=== PATIENT | female | born 1950 | race Caucasian/White ===

== ENCOUNTER → 2018-07-13 | Outpatient (CLI) | payer OTHER | LOC: BMCIMAGING 11:59 | PROVIDERS: ATTEND Internal Medicine | DX: Z12.31 Encounter for screening mammogram for malignant neoplasm of breast (principal) ==

== ENCOUNTER → 2018-07-20 | Outpatient (CLI) | payer OTHER | LOC: BMCIMAGING 11:09 | PROVIDERS: ATTEND Internal Medicine | DX: R92.8 Other abnormal and inconclusive findings on diagnostic imaging of breast (principal) ==

== ENCOUNTER 2019-02-21 06:21 | Day surgery (SDC) | payer OTHER ==
[2019-02-21] MEDS ORDERED: LIDOCAINE 1% 300 MG/30 ML SDV SC ONE (06:30)
--- NOTE | 2019-02-21 07:32 | PDHPUP ---
History & Physical Update H&P update statement: This history and physical update is based on an assessment of the patient which was completed after admission or registration (within 24 hours), but prior to the surgery/procedure. Pt presents for implantable loop in the setting of symptoms suggestive of SVT vs afib. Zio was unremarkable. H&P update: H&P reviewed & patient examined, no change in patient's condition since H&P completed
--- NOTE | 2019-02-21 10:14 | CPR ---
[f rep st] NONINVASIVE CARDIAC PROCEDURE REPORT DATE OF PROCEDURE: 02/21/2019 PROCEDURE PERFORMED: [employer] implantable loop recorder. INDICATION FOR PROCEDURE: The patient is a pleasant 68-year-old female with intermittent episodes of sustained irregular rapid heartbeat suggestive of atrial fibrillation. ZIO patch monitor worn for 2 weeks earlier this year did not demonstrate any evidence of atrial fibrillation. In the setting of concern for underlying atrial fibrillation in infrequent episodes, decision was made to implant a loo p recorder. Risks and benefits of the procedure were discussed in detail. The patient consents were signed prior to procedure. DESCRIPTION OF PROCEDURE: After consents were signed for implantable loop recorder, the patient was prepped and draped in a sterile fashion. Using 1% lidocaine, local anesthesia was applied to the segun face of the skin and with a track made under the skin where the device would follow. Incision made w ith a scalpel provided in the [employer] implantable loop recorder kit. This incision was modified w ith a #15 scalpel blade. A track was made underneath the skin. Device was implanted without difficu lty. Hemostasis was achieved. Steri-Strips were applied. Device was interrogated, demonstrating ap propriate capture and appropriate P waves. This was a [employer] confirmed device #[id number]. PLAN: 1. The patient will be discharged home. 2. The patient has been given postoperative instructions. 3. The patient is scheduled to follow up in the office in 1 week for a wound and device check. /[id number]/MODL
== END 2019-02-21 08:55 | disposition home or self-care (01) ==
LOC: FCATH 06:21
PROVIDERS: ATTEND Internal Medicine Cardiovascular Disease
PROC: 0JH602Z Insertion of Monitoring Device into Chest Subcutaneous Tissue and Fascia, Open Approach (ICD-10-PCS; principal; 2019-02-21)
DX: R55 Syncope and collapse (principal)
CPT/HCPCS: C1764